=== PATIENT | female | born 1990 | race Hispanic/Latino ===

== ENCOUNTER 2022-01-12 05:19 | Emergency (ER) | payer MEDICAID ==
[~2022-01-12] VITALS: Ht 160 cm; Wt 94.3 kg
[2022-01-12] MEDS ORDERED: GUAIFENESIN-CODEINE 5 ML SYRUP PO ONE (06:00)
[2022-01-12] MEDS ORDERED: 0.9% NACL 500ML IV.SOLN 500 ML IV ONE (06:00)
[2022-01-12] MEDS ORDERED: KETOROLAC 15MG/ML VIAL (15MG/ML) IV ONE (06:00)
[2022-01-12 06:07] LABS: EOSINOPHILS % (AUTO) 0.4 % (0.0-8.0); HEMATOCRIT 30.7 % (36-48); LYMPHOCYTES % (AUTO) 18.8 % (21.0-51.0); MEAN CORPUSCULAR HEMOGLOBIN 23.8 pg (27.0-33.0); MEAN CORPUSCULAR HGB CONC 31.3 g/dL (32.0-36.0); MEAN CORPUSCULAR VOLUME 76.2 fL (79-99); MONOCYTES % (AUTO) 8.1 % (3.0-13.0); NEUTROPHILS % (AUTO) 72.3 % (40.0-77.0); PLATELET COUNT (AUTO) 216 K/uL (130-400); RED BLOOD CELL COUNT(AUTO) 4.03 MIL/uL (4.00-5.50); RED CELL DISTRIBUTION WIDTH 14.7 % (11.0-15.5)
[2022-01-12 06:21] LABS: CREATININE 0.7 mg/dL (0.5-1.5); POTASSIUM 4.4 mmol/L (3.5-5.1)
[2022-01-12 06:32] LABS: ALBUMIN 3.5 g/dL (3.5-5.0); TOTAL PROTEIN, SERUM 6.8 g/dL (6.0-8.3)
[2022-01-12] MEDS ORDERED: IBUP-2070 PO (06:36)
[2022-01-12] MEDS ORDERED: D-ME118S47 PO (06:36)
[2022-01-12] MEDS ORDERED: OSEL75 PO (09:21)
[2022-01-12 09:24] VITALS: BP 99/44
== END 2022-01-12 10:12 | disposition home or self-care (01) ==
LOC: EDH 05:19
DX: M94.0 Chondrocostal junction syndrome [Tietze] (principal); J10.1 Influenza due to other identified influenza virus with other respiratory manifestations; Z20.822 Contact with and (suspected) exposure to COVID-19; Z98.890 Other specified postprocedural states
CPT/HCPCS: 99284; 96374; 87635; 96361; 84484; 80053; 85025; 87804 ×2; 36415; 93005; C9803; J7040; J1885